=== PATIENT | female | born 1995 | race Caucasian/White ===

== ENCOUNTER 2021-11-22 11:52 | Emergency (ER) | payer OTHER ==
[~2021-11-22] VITALS: Ht 157.5 cm; Wt 56.0 kg
[2021-11-22 12:12] VITALS: BP 120/74
[2021-11-22] MEDS ORDERED: ACETAMINOPHEN 325MG TABLET PO ONE (14:45)
[2021-11-22] MEDS ORDERED: ACET-2708 MT (15:28)
[2021-11-22] MEDS ORDERED: ALBU6.7H9 INH (15:28)
== END 2021-11-22 15:52 | disposition home or self-care (01) ==
LOC: ER 11:52
DX: B34.9 Viral infection, unspecified (principal); R05.8 Other specified cough; Z86.16 Personal history of COVID-19; Z20.822 Contact with and (suspected) exposure to COVID-19
CPT/HCPCS: 71045; 81025; 87426; 99284; C9803

== ENCOUNTER 2022-02-26 15:48 | Emergency (ER) | payer MEDICAID, OTHER ==
[~2022-02-26] VITALS: Ht 165.1 cm; Wt 62.0 kg
[~2022-02-26 15:48] MED LIST: ACET-2708 MT; ALBU6.7H3 INH
[2022-02-26 15:57] VITALS: BP 128/95
[2022-02-26] MEDS ORDERED: IBUPROFEN 600MG TABLET PO ONE (18:45)
[2022-02-26] MEDS ORDERED: PENICILLIN G BENZATHINE 1,200,000 UNITS/2ML SYR IM ONE (18:45)
== END 2022-02-26 20:14 | disposition home or self-care (01) ==
LOC: ER 15:48
DX: S93.492A Sprain of other ligament of left ankle, initial encounter (principal); X58.XXXA Exposure to other specified factors, initial encounter; Y93.89 Activity, other specified; Y92.89 Other specified places as the place of occurrence of the external cause; Y99.8 Other external cause status
CPT/HCPCS: 73610; 81025; 99283

== ENCOUNTER 2023-02-27 12:41 | Emergency (ER) | payer MEDICAID, OTHER ==
[~2023-02-27] VITALS: Ht 162.6 cm; Wt 63.0 kg
[2023-02-27 12:48] VITALS: O2SAT 96
[2023-02-27] MEDS ORDERED: DEXT15LI36 PO (14:07)
[2023-02-27 15:16] VITALS: BP 134/57; PULSE 60; RESP 16; TEMP 99.3
== END 2023-02-27 15:18 | disposition home or self-care (01) ==
LOC: ER 12:41
DX: R05.9 Cough, unspecified (principal)
CPT/HCPCS: 71045; 99283

== ENCOUNTER 2023-03-28 08:49 | Emergency (ER) | payer OTHER ==
[~2023-03-28] VITALS: Ht 162.6 cm; Wt 66.0 kg
[~2023-03-28 08:49] MED LIST changes: +DEXT15LI36 PO
[2023-03-28 09:04] VITALS: BP 116/77; PULSE 110; RESP 18; TEMP 99.5; O2SAT 99
[2023-03-28 09:44] LABS: HEMATOCRIT. 39.8 % (36.0-48.0); HEMOGLOBIN. 13.4 g/dL (12.0-16.0); MEAN CORPUSCULAR HEMOGLOBIN 30.6 pg (28.0-32.0); MEAN CORPUSCULAR HGB CONC 33.8 g/dL (31.0-37.0); MEAN CORPUSCULAR VOLUME 90.6 fL (81.0-99.0); MEAN PLATELET VOLUME 8.6 fl (7.4-10.4); PLATELET 259 x1000/uL (130-400); RED BLOOD CELL COUNT 4.39 mill/uL (4.2-5.4); RED CELL DISTRIBUTION WIDTH 12.7 % (11.6-14.6); WHITE BLOOD COUNT 12.9 x1000/uL (4.5-11.0)
[2023-03-28 10:06] LABS: ALANINE AMINOTRANSFERASE 28 IU/L (10-49); ALBUMIN 4.7 g/dL (3.2-4.8); ASPARTATE AMINOTRANSFERASE 30 IU/L (<34); BILIRUBIN TOTAL 0.4 mg/dL (0.1-1.0); CALCIUM 9.4 mg/dL (8.7-10.4); CARBON DIOXIDE 24 mEq/L (21-32); CHLORIDE 103 mEq/L (98-107); CREATININE 0.8 mg/dL (0.6-1.0); GLUCOSE 127 mg/dL (70-105); PROTEIN TOTAL 7.4 g/dL (6.0-8.3); SODIUM 137 mEq/L (136-145); UREA NITROGEN BLOOD 7 mg/dL (9-23)
[2023-03-28 10:10] LABS: CLARITY URINE CLOUDY (CLEAR); COLOR URINE DARK YELLOW (YELLOW); GLUCOSE URINE NEGATIVE (NEGATIVE); KETONES URINE 1+ (NEGATIVE); LEUKOCYTE ESTERASE URINE 2+ (NEGATIVE); NITRITE URINE NEGATIVE (NEGATIVE); OCCULT BLOOD URINE 1+ (NEGATIVE); PROTEIN URINE TRACE (NEGATIVE); SPECIFIC GRAVITY URINE 1.027 (1.005-1.030)
[2023-03-28 10:12] LABS: DIFFERENTIAL COMMENT 1
[2023-03-28 10:24] LABS: BACTERIA URINE 4+; SQUAMOUS EPITHELIAL CELL URINE 3+ /lpf (RARE/1+); WBC URINE 25-50 /hpf (0-2); YEAST URINE NONE SEEN
[2023-03-28 10:45] LABS: PLATELET ESTIMATE NORMAL
[2023-03-28] MEDS ORDERED: BENZ1LOZ73 MT (11:25)
[2023-03-28] MEDS ORDERED: NITR-87 MT (11:25)
[2023-03-28] MEDS ORDERED: IBUP-2029 MT (11:25)
[2023-03-28] MEDS ORDERED: DEXAMETHASONE 0.5MG/5ML ORAL SYR PO ONE (11:30)
[2023-03-28] MEDS ORDERED: DEXAMETHASONE 4MG TABLET PO NR (12:00)
== END 2023-03-28 12:22 | disposition home or self-care (01) ==
LOC: ER 08:49
DX: J06.9 Acute upper respiratory infection, unspecified (principal); K52.9 Noninfective gastroenteritis and colitis, unspecified
CPT/HCPCS: 36415; 71045; 80053; 81003; 81025; 85025; 99284; J8540

== ENCOUNTER 2023-03-31 04:28 | Emergency (ER) | payer OTHER ==
[~2023-03-31] VITALS: Ht 162.6 cm; Wt 62.1 kg
[~2023-03-31 04:28] MED LIST changes: +BENZ1LOZ73 MT; +IBUP-2029 MT; +NITR-87 MT
[2023-03-31 05:06] VITALS: BP 109/72; PULSE 95; RESP 18; TEMP 99.8; O2SAT 96
[2023-03-31] MEDS ORDERED: GUAIFENESIN-DM 200MG-20MG/10ML UDC PO ONE (08:45)
[2023-03-31] MEDS ORDERED: DEXAMETHASONE 4MG TABLET PO ONE (08:45)
== END 2023-03-31 09:56 | disposition home or self-care (01) ==
LOC: ER 04:28
DX: J06.9 Acute upper respiratory infection, unspecified (principal); Z98.890 Other specified postprocedural states
CPT/HCPCS: 99281; J8540

== ENCOUNTER 2024-11-19 18:21 | Emergency (ER) | payer OTHER ==
[~2024-11-19] VITALS: Ht 165.1 cm; Wt 82.0 kg
[2024-11-19 18:25] VITALS: O2SAT 98
[2024-11-19 19:17] LABS: BASOPHILS % 0.4 % (0.0-2.0); EOSINOPHILS % 1.0 % (0.0-5.0); HEMATOCRIT. 38.3 % (36.0-48.0); HEMOGLOBIN. 13.0 g/dL (12.0-16.0); LYMPHOCYTES % 23.1 % (20.0-50.0); MEAN PLATELET VOLUME 8.9 fl (7.4-10.4); MONOCYTES % 6.4 % (2.0-8.0); NEUTROPHILS % 69.1 % (40.0-76.0); PLATELET 321 x1000/uL (130-400); RED BLOOD CELL COUNT 4.20 mill/uL (4.2-5.4); RED CELL DISTRIBUTION WIDTH 13.0 % (11.6-14.6)
[2024-11-19 19:28] LABS: CREATININE 0.7 mg/dL (0.6-1.0); UREA NITROGEN BLOOD 12 mg/dL (9-23)
[2024-11-19 21:04] LABS: ASPARTATE AMINOTRANSFERASE 38 IU/L (<34); BILIRUBIN DIRECT 0.1 mg/dL (<=3.0); BILIRUBIN TOTAL 0.4 mg/dL (0.1-1.0); PROTEIN TOTAL 7.5 g/dL (6.0-8.3)
[2024-11-19 22:13] VITALS: BP 108/73; PULSE 85; RESP 14; TEMP 37; O2SAT 98
== END 2024-11-19 22:21 | disposition home or self-care (01) ==
LOC: ER 18:21
DX: K29.70 Gastritis, unspecified, without bleeding (principal); Z79.899 Other long term (current) drug therapy; Z98.890 Other specified postprocedural states
CPT/HCPCS: 36415; 76705; 76856; 80048; 80076; 85025; 99284